=== PATIENT | male | born 1990 | race African-American/Black ===

== ENCOUNTER 2016-08-02 20:40 | Emergency (ER) | payer MEDICAID ==
[~2016-08-02] VITALS: Ht 175.3 cm; Wt 54.9 kg
[2016-08-02 22:43] LABS: Basophils # (auto) 0 uL; Basophils % (auto) 0.9 % (0.0-2.0); Eosinophils # (auto) 0.2 uL; Eosinophils % (auto) 3.4 % (0.0-7.0); Hematocrit 45.2 % (41.0-53.0); Hemoglobin 15.1 g/dL (13.5-17.5); Lymphocytes # (auto) 2.2 uL; Lymphocytes % (auto) 48.7 % (10.0-50.0); Mean Corpuscular Hemoglobin 31.7 pg (28.0-32.0); Mean Corpuscular Hgb Conc. 33.5 g/dL (32.0-36.0); Mean Corpuscular Volume 94.7 fL (80.0-100.0); Mean Platelet Volume 8.2 fL (7.4-10.4); Monocytes # (auto) 0.3 uL; Monocytes % (auto) 6.3 % (0.0-12.0); Neutrophils # (auto) 1.9 uL; Neutrophils % (auto) 40.7 % (37.0-80.0); Platelet Count (auto) 242 10^3/uL (140-450); Red Cell Distribution Width 13.2 % (11.6-16.0); White Blood Cell 4.6 10^3/uL (4.4-10.8)
[2016-08-02] MEDS ORDERED: LORazepam 0.5 MG TAB PO ONE (22:45)
[2016-08-02 23:02] LABS: Albumin 3.9 g/dL (3.4-5.0); Anion Gap 9 (5-15); Aspartate Aminotransferase 21 U/L (15-37); BUN/Creatinine Ratio 10.8; Blood Urea Nitrogen 11 mg/dL (7-18); Calcium 8.6 mg/dL (8.5-10.1); Carbon Dioxide 28 mmol/L (21-32); Chloride 104 mmol/L (98-107); GFR African American 113 mL/min; GFR Non-African American 93 mL/min; Glucose 69 mg/dL (74-106); Sodium 141 mmol/L (136-145)
[2016-08-02 23:07] LABS: Alkaline Phosphatase 67 U/L (45-117); Bilirubin, Total 0.3 mg/dL (0.2-1.0); Total Protein 7.8 g/dL (6.4-8.2)
[2016-08-02 23:13] LABS: INR 1.02 (0.9-1.15)
[2016-08-02 23:41] LABS: B-Type Natriuretic Peptide < 5.0 pg/mL (0-100); Temperature: 21.9 C (20.0-25.0)
[2016-08-03 01:00] VITALS: BP 122/66
== END 2016-08-03 01:00 | disposition home or self-care (01) ==
LOC: ER 20:49
DX: R07.9 Chest pain, unspecified (principal); F17.210 Nicotine dependence, cigarettes, uncomplicated; F12.10 Cannabis abuse, uncomplicated; F14.10 Cocaine abuse, uncomplicated; Z87.442 Personal history of urinary calculi; Z88.0 Allergy status to penicillin
CPT/HCPCS: 36415; 71010; 80053; 80307; 80320; 83880; 84484; 85025; 85379; 85610; 85730; 93005; 94761

== ENCOUNTER 2016-09-30 15:35 | Emergency (ER) | payer MEDICAID ==
[~2016-09-30] VITALS: Ht 175.3 cm; Wt 54.9 kg
[2016-09-30 16:25] LABS: Basophils # (auto) 0 uL; Basophils % (auto) 0.4 % (0.0-2.0); CONDITION Y; Eosinophils # (auto) 0.1 uL; Eosinophils % (auto) 1.3 % (0.0-7.0); Hematocrit 43.6 % (41.0-53.0); Hemoglobin 14.8 g/dL (13.5-17.5); Lymphocytes # (auto) 1.5 uL; Lymphocytes % (auto) 36.7 % (10.0-50.0); Mean Corpuscular Hemoglobin 32.7 pg (28.0-32.0); Mean Corpuscular Hgb Conc. 33.9 g/dL (32.0-36.0); Mean Corpuscular Volume 96.6 fL (80.0-100.0); Mean Platelet Volume 8.2 fL (7.4-10.4); Monocytes # (auto) 0.3 uL; Monocytes % (auto) 6.8 % (0.0-12.0); Neutrophils # (auto) 2.3 uL; Neutrophils % (auto) 54.8 % (37.0-80.0); Platelet Count (auto) 241 10^3/uL (140-450); Red Cell Distribution Width 13.2 % (11.6-16.0); White Blood Cell 4.2 10^3/uL (4.4-10.8)
[2016-09-30 17:12] LABS: Albumin 4.1 g/dL (3.4-5.0); Alkaline Phosphatase 59 U/L (45-117); Anion Gap 7 (5-15); Aspartate Aminotransferase 19 U/L (15-37); BUN/Creatinine Ratio 6.6; Bilirubin, Total 0.4 mg/dL (0.2-1.0); Blood Urea Nitrogen 8 mg/dL (7-18); Calcium 9.2 mg/dL (8.5-10.1); Carbon Dioxide 26 mmol/L (21-32); Chloride 107 mmol/L (98-107); GFR African American 92 mL/min; GFR Non-African American 76 mL/min; Glucose 90 mg/dL (74-106); Magnesium 2.4 mg/dL (1.6-2.6); Potassium 4.2 mmol/L (3.5-5.1); Sodium 140 mmol/L (136-145); Total Protein 7.6 g/dL (6.4-8.2)
[2016-10-01] MEDS ORDERED: PROMETHAZINE W/CODEINE 5 ML ORAL SYRUP PO ONE (01:15)
[2016-10-01 01:38] VITALS: BP 124/84
== END 2016-10-01 01:40 | disposition home or self-care (01) ==
LOC: ER 15:39
DX: R07.89 Other chest pain (principal); R05 Cough; Z87.442 Personal history of urinary calculi; F17.210 Nicotine dependence, cigarettes, uncomplicated; F12.10 Cannabis abuse, uncomplicated
CPT/HCPCS: 36415; 71020; 80053; 83735; 84484; 85025; 93005

== ENCOUNTER 2019-07-31 14:57 | Emergency (ER) | payer MEDICAID ==
[~2019-07-31] VITALS: Ht 172.7 cm; Wt 59.0 kg
[2019-07-31 15:10] VITALS: BP 118/61
[2019-07-31 16:07] LABS: Urine Bacteria NONE SEEN /hpf (None Seen); Urine Blood Negative /uL (Negative); Urine Mucus FEW (None Seen); Urine Specific Gravity 1.019 (1.001-1.035); Urine WBC 4 /hpf (0 - 3)
[2019-07-31] MEDS ORDERED: cefTRIAXone SODIUM 250 MG VL IM ONE (16:15)
[2019-07-31] MEDS ORDERED: AZITHROMYCIN 250 MG TAB PO ONE (16:15)
[2019-07-31] MEDS ORDERED: cefTRIAXone SOD 1,000 MG VL ONE (16:19)
== END 2019-07-31 17:34 | disposition home or self-care (01) ==
LOC: ER 14:57
DX: N20.0 Calculus of kidney (principal); F17.200 Nicotine dependence, unspecified, uncomplicated; Z20.2 Contact with and (suspected) exposure to infections with a predominantly sexual mode of transmission
CPT/HCPCS: 74176; 81001; 99284; J0696

== ENCOUNTER 2022-09-04 10:24 | Emergency (ER) | payer MEDICAID, OTHER ==
[~2022-09-04] VITALS: Ht 175.3 cm; Wt 60.9 kg
[2022-09-04 12:11] VITALS: BP 143/77
[2022-09-04] MEDS ORDERED: TRAM50TA2 PO (12:44)
== END 2022-09-04 12:52 | disposition home or self-care (01) ==
LOC: ER 10:24
DX: S52.612A Displaced fracture of left ulna styloid process, initial encounter for closed fracture (principal); S52.592A Other fractures of lower end of left radius, initial encounter for closed fracture; S46.812A Strain of other muscles, fascia and tendons at shoulder and upper arm level, left arm, initial encounter; F17.210 Nicotine dependence, cigarettes, uncomplicated; F15.90 Other stimulant use, unspecified, uncomplicated; Z87.442 Personal history of urinary calculi; Z79.899 Other long term (current) drug therapy; V43.62XA Car passenger injured in collision with other type car in traffic accident, initial encounter; Y93.89 Activity, other specified; Y92.488 Other paved roadways as the place of occurrence of the external cause; Y99.8 Other external cause status
CPT/HCPCS: 29125; 73030; 73110

== ENCOUNTER 2023-01-24 23:13 | Emergency (ER) | payer OTHER ==
[~2023-01-24] VITALS: Ht 175.3 cm; Wt 56.7 kg
[~2023-01-24 23:13] MED LIST: PERCOT PO; TAMS-35 PO; TRAM50TA2 PO
[2023-01-25 00:14] LABS: Basophils # (auto) 0 10 ^3/uL (0-0.2); Basophils % (auto) 0.6 % (0.0-2.0); Eosinophils # (auto) 0.1 10 ^3/uL (0-0.8); Eosinophils % (auto) 2.6 % (0.0-7.0); Hematocrit 45.8 % (41.0-53.0); Hemoglobin 15.1 g/dL (13.5-17.5); Lymphocytes # (auto) 2.6 10 ^3/uL (0.4-5.4); Lymphocytes % (auto) 52.5 % (10.0-50.0); Mean Corpuscular Hemoglobin 30.9 pg (28.0-32.0); Mean Corpuscular Volume 93.8 fL (80.0-100.0); Monocytes # (auto) 0.4 10 ^3/uL (0-1.3); Monocytes % (auto) 8.4 % (0.0-12.0); Neutrophils # (auto) 1.8 10 ^3/uL (1.6-8.6); Neutrophils % (auto) 35.9 % (37.0-80.0); Nucleated Red Blood Cells % 0.2 %; Red Blood Cells 4.88 10^6/uL (4.5-5.90); Red Cell Distribution Width 12.9 % (11.8-14.3); White Blood Cell 4.9 10^3/uL (4.4-10.8)
[2023-01-25 00:33] LABS: Alanine Aminotransferase 37 U/L (7-40); Albumin 4.8 g/dL (3.2-4.8); Alkaline Phosphatase 65 U/L (46-116); Anion Gap 7 (5-15); Aspartate Aminotransferase 43 U/L (13-40); BUN/Creatinine Ratio 9.1 (10.0-20.0); Blood Urea Nitrogen 9 mg/dL (9-23); Calcium 9.5 mg/dL (8.7-10.4); Carbon Dioxide 27 mmol/L (20-30); Chloride 104 mmol/L (98-107); Glucose 91 mg/dL (74-106); Lipase 43 U/L (12-53); Potassium 3.9 mmol/L (3.5-5.1); Sodium 138 mmol/L (136-145)
[2023-01-25 00:34] LABS: Bilirubin, Total 0.7 mg/dL (0.2-1.0); Total Protein 7.5 g/dL (5.7-8.2)
[2023-01-25 02:21] LABS: Urine Bacteria NONE SEEN /hpf (None Seen); Urine Blood Negative /uL (Negative); Urine Clarity Clear (Clear); Urine Color Yellow (Yellow); Urine Mucus FEW (None Seen); Urine Protein, UAD Negative (Negative); Urine Specific Gravity 1.018 (1.001-1.035); Urine Urobilinogen Normal (Negative); Urine WBC 1 /hpf (0 - 3)
[2023-01-25] MEDS ORDERED: ONDANSETRON ODT 4 MG TAB PO ONE (06:45)
[2023-01-25] MEDS ORDERED: ZOFR4T PO (06:49)
[2023-01-25] MEDS ORDERED: POLY335015 PO (06:49)
[2023-01-25 07:35] VITALS: BP 127/78; PULSE 66; RESP 17; TEMP 97.6; O2SAT 98
== END 2023-01-25 08:33 | disposition home or self-care (01) ==
LOC: ER 23:13
DX: K59.00 Constipation, unspecified (principal); R10.13 Epigastric pain; F17.210 Nicotine dependence, cigarettes, uncomplicated; Z79.899 Other long term (current) drug therapy; Z88.0 Allergy status to penicillin
CPT/HCPCS: 36415; 74022; 76705; 80053; 81001; 83690; 85025

== ENCOUNTER 2023-05-24 15:22 | Emergency (ER) | payer OTHER ==
[~2023-05-24] VITALS: Ht 175.3 cm; Wt 58.9 kg
[~2023-05-24 15:22] MED LIST changes: +POLY335015 PO; +ZOFR4T PO
[2023-05-24 16:04] LABS: Basophils # (auto) 0.1 10 ^3/uL (0-0.2); Basophils % (auto) 1.5 % (0.0-2.0); Eosinophils # (auto) 0.1 10 ^3/uL (0-0.8); Eosinophils % (auto) 1.9 % (0.0-7.0); Hematocrit 46.5 % (41.0-53.0); Hemoglobin 15.7 g/dL (13.5-17.5); Lymphocytes # (auto) 1.4 10 ^3/uL (0.4-5.4); Lymphocytes % (auto) 39.2 % (10.0-50.0); Mean Corpuscular Hemoglobin 31.4 pg (28.0-32.0); Mean Corpuscular Hgb Conc. 33.9 g/dL (32.0-36.0); Mean Corpuscular Volume 92.8 fL (80.0-100.0); Monocytes # (auto) 0.3 10 ^3/uL (0-1.3); Monocytes % (auto) 8.2 % (0.0-12.0); Neutrophils # (auto) 1.8 10 ^3/uL (1.6-8.6); Neutrophils % (auto) 49.2 % (37.0-80.0); Nucleated Red Blood Cells % 0.2 %; Red Blood Cells 5.01 10^6/uL (4.5-5.90); Red Cell Distribution Width 12.4 % (11.8-14.3); White Blood Cell 3.6 10^3/uL (4.4-10.8)
[2023-05-24 16:21] LABS: Alanine Aminotransferase 16 U/L (7-40); Alkaline Phosphatase 66 U/L (46-116); Anion Gap 4 (5-15); Aspartate Aminotransferase 20 U/L (13-40); BUN/Creatinine Ratio 11.1 (10.0-20.0); Blood Urea Nitrogen 11 mg/dL (9-23); Calcium 9.7 mg/dL (8.5-10.1); Carbon Dioxide 28 mmol/L (20-30); Chloride 106 mmol/L (98-107); Glucose 90 mg/dL (74-106); Potassium 3.9 mmol/L (3.5-5.1); Sodium 138 mmol/L (136-145)
[2023-05-24 16:22] LABS: Bilirubin, Total 0.5 mg/dL (0.2-1.0); Total Protein 7.4 g/dL (5.7-8.2)
[2023-05-24] MEDS ORDERED: ASPI-123 PO (19:09)
[2023-05-24] MEDS ORDERED: COLC1TAB3 PO (19:09)
[2023-05-24] MEDS: KETOROLAC TROMETH 30 MG/ML 1ML VIAL IM ONE (20:07)
[2023-05-24 20:14] VITALS: PULSE 67; RESP 16; O2SAT 99
[2023-05-24 20:15] VITALS: BP 144/67; PULSE 67; RESP 16; O2SAT 99
== END 2023-05-24 20:15 | disposition home or self-care (01) ==
LOC: ER 15:22
DX: I20.9 Angina pectoris, unspecified (principal); I31.9 Disease of pericardium, unspecified; R07.81 Pleurodynia; R07.89 Other chest pain; F17.210 Nicotine dependence, cigarettes, uncomplicated; F12.10 Cannabis abuse, uncomplicated; Z88.0 Allergy status to penicillin; Z87.442 Personal history of urinary calculi
CPT/HCPCS: 36415; 71046; 80053; 84484; 85025; 93005; 96372; 99285; J1885